=== PATIENT | female | born 1975 | race Caucasian/White ===

== ENCOUNTER 2017-02-10 19:15 | Emergency (ER) | payer OTHER ==
[2017-02-10 19:38] VITALS: BP 119/82; PULSE 82; RESP 18; TEMP 98.2
[2017-02-10] MEDS ORDERED: PENICILLIN V POTASSIUM 250 MG TAB PO STA (19:54)
[2017-02-10] MEDS ORDERED: traMADol 50 MG TAB PO STA (19:54)
--- NOTE | 2017-02-10 20:00 | ED ---
ENT HPI - General Chief complaint: Dental/Oral Stated complaint: Dental Pain Time Seen by Provider: 02/10/17 19:38 Source: patient, RN notes reviewed Mode of arrival: ambulatory Limitations: no limitations - History of Present Illness Initial comments: Patient is a 41-year-old female since emergency room for evaluation of left lower dental pain and facial edema. Patient states pain began yesterday. Patient states the swelling began today. Patient states she's been gargling with peroxide and taking ibuprofen with no relief of symptoms. Patient states she's been unable to get into a dental clinic. Patient denies fevers or chills. Patient denies trouble swallowing. Patient denies ear pain. Patient states having 8 out of 10 dental pain. - Related Data Previous Rx's Medication Instructions Recorded Penicillin V Potassium [Pen Vee K] 500 mg PO QID 10 Days 02/10/17 traMADol HCl [Ultram] 50 mg PO Q4H PRN #15 tab 02/10/17 Allergies Allergy/AdvReac Type Severity Reaction Status Date / Time No Known Allergies Allergy Verified 02/10/17 19:38 Review of Systems ROS Statement: Those systems with pertinent positive or pertinent negative responses have been documented in the HPI. ROS Other: All systems not noted in ROS Statement are negative. Past Medical History Past Medical History: No Reported History History of Any Multi-Drug Resistant Organisms: None Reported Past Surgical History: No Surgical Hx Reported Past Psychological History: No Psychological Hx Reported Smoking Status: Current every day smoker Past Alcohol Use History: None Reported Past Drug Use History: None Reported General Exam - General Exam Comments Initial Comments: sitting in exam room, no acute distress. Limitations: no limitations General appearance: alert, in no apparent distress Head exam: Present: atraumatic, normocephalic, normal inspection Eye exam: Present: normal appearance ENT exam: Present: other (left-sided facial edema) Expanded Teeth exam: Present: fractured tooth # (deterioration of tooth #19/18), other ( small amount of fluctuance on the outside of teeth #18/19) Neck exam: Present: normal inspection, full ROM. Absent: tenderness, lymphadenopathy Respiratory exam: Present: normal lung sounds bilaterally. Absent: respiratory distress Cardiovascular Exam: Present: regular rate, normal rhythm, normal heart sounds Extremities exam: Present: normal inspection Back exam: Present: normal inspection Neurological exam: Present: alert, oriented X3, CN II-XII intact, normal gait Psychiatric exam: Present: normal affect, normal mood Skin exam: Present: warm, dry, intact, normal color. Absent: rash Course Vital Signs 02/10/17 19:36 Temperature 98.2 F Pulse Rate 82 Respiratory 18 Rate Blood Pressure 119/82 O2 Sat by Pulse 99 Oximetry Medical Decision Making - Medical Decision Making patient is a 41-year-old female presents to the emergency room for evaluation of left-sided dental pain and swelling. Patient was noted to have slight fluctuance on the outside of teeth #18 and 19. Patient refused to have the area drained. Patient states she will return if symptoms worsen. I did explain the risks of increased infection if patient refused to have area drain. Patient states she understands and still would like to be discharged home. Patient will be placed on antibiotic and pain medications and advised to follow- up with a dentist as soon as possible. Patient states she understands everything that was discussed with her. Case discussed with Dr. Garcia. Disposition Clinical Impression: Pain, dental, Dental abscess Disposition: HOME SELF-CARE Condition: Good Instructions: Dental Abscess (ED), Toothache (ED) Additional Instructions: Please follow up with a dentist. If you do not have a dentist, you may contact [facility]. Phone number is [phone] for existing clients. For new clients you may call [phone]. Another option is you have is the [facility]. Phone number is [phone]. Medications as directed. [place] gargles. Cold fluids can sometimes help with pain as well. Return to the Emergency Room for any worsening or changing symptoms. Use cold compresses to the outside of the face. Prescriptions: Penicillin V Potassium [Pen Vee K] 500 mg PO QID 10 Days traMADol HCl [Ultram] 50 mg PO Q4H PRN #15 tab PRN Reason: Pain Referrals: Fernando Pinto DO [Primary Care Provider] - 1-2 days Time of Disposition: 19:54
== END 2017-02-10 20:09 | disposition home or self-care (01) ==
LOC: EC 19:15
DX: K04.7 Periapical abscess without sinus (principal); K03.81 Cracked tooth; F17.200 Nicotine dependence, unspecified, uncomplicated
CPT/HCPCS: 99282

== ENCOUNTER 2017-02-11 11:50 | Emergency (ER) | payer OTHER ==
[2017-02-11 12:43] VITALS: PULSE 68
--- NOTE | 2017-02-11 13:11 | ED ---
ENT HPI - General Chief complaint: Dental/Oral Stated complaint: FACIAL, DENTAL SWELLING Time Seen by Provider: 02/11/17 13:00 Source: patient Mode of arrival: ambulatory Limitations: no limitations - History of Present Illness Initial comments: This 41-year-old white female presents complaining of some dental pain. It is on the left lower dentition. There has pain and swelling for the last 1 day. She was seen in the ER yesterday and offered an incision and drainage of intraoral abscess but refuses at that time. She is discharged home with some antibiotics as well as pain medications. She states that the swelling to her left lower face became worse this morning. No fevers or chills. No other complaints or modifying factors. - Related Data Previous Rx's Medication Instructions Recorded Penicillin V Potassium [Pen Vee K] 500 mg PO QID 10 Days 02/10/17 traMADol HCl [Ultram] 50 mg PO Q4H PRN #15 tab 02/10/17 Allergies Allergy/AdvReac Type Severity Reaction Status Date / Time No Known Allergies Allergy Verified 02/11/17 12:43 Review of Systems ROS Statement: Those systems with pertinent positive or pertinent negative responses have been documented in the HPI. ROS Other: All systems not noted in ROS Statement are negative. Past Medical History Past Medical History: No Reported History History of Any Multi-Drug Resistant Organisms: None Reported Past Surgical History: No Surgical Hx Reported Past Psychological History: No Psychological Hx Reported Smoking Status: Current every day smoker Past Alcohol Use History: None Reported Past Drug Use History: None Reported General Exam Limitations: no limitations General appearance: alert, in no apparent distress Head exam: Present: atraumatic, normocephalic ENT exam: Present: normal oropharynx, mucous membranes moist, other (The patient has some tenderness and swelling present to the left mandibular region. There are dental caries noted in the left lower molars. There is some intraoral swelling noted with fluctuance.) Neck exam: Present: normal inspection. Absent: tenderness Psychiatric exam: Present: normal affect, normal mood Course Vital Signs 02/11/17 12:41 Temperature 97.7 F Pulse Rate 68 Respiratory 18 Rate Blood Pressure 125/72 O2 Sat by Pulse 99 Oximetry Medical Decision Making - Medical Decision Making The patient was seen and examined. All diagnostics were reviewed. She is agreeable to incision and drainage at this time. A periosteal block is done at the affected tooth utilizing approximately 1-2 mL of lidocaine. Utilizing 11 blade scalpel and small incision is made into the area of mass fluctuance. A small amount of purulence is expressed. It is felt as though she benefit from following up with a dentist and she understands. She is to continue with the previously prescribed medication and leaves in much less distress. Disposition Clinical Impression: Periapical abscess, Facial swelling, Dental caries Disposition: HOME SELF-CARE Condition: Good Instructions: Dental Abscess (ED), Dental Caries (ED), Abscess Incision and Drainage (ED) Additional Instructions: Please follow-up with a dentist as soon as possible. Referrals: Fernando Pinto DO [Primary Care Provider] - 1-2 days Time of Disposition: 13:28
[2017-02-11 13:35] VITALS: BP 131/68; RESP 16; TEMP 97.6
== END 2017-02-11 13:36 | disposition home or self-care (01) ==
LOC: EC 11:50
DX: K04.7 Periapical abscess without sinus (principal); K02.9 Dental caries, unspecified; F17.200 Nicotine dependence, unspecified, uncomplicated
CPT/HCPCS: 41800; 99283